=== PATIENT | male | born 1940 | race Caucasian/White ===

== ENCOUNTER 2016-09-09 15:57 | Inpatient (IN) | payer MEDICARE, MEDICAID ==
--- NOTE | 2016-09-09 16:10 | ED Physician Chart ---
Chief Complaint/HPI - Patient Information Date Seen:: 09/09/16 Time Seen:: 15:56 Chief Complaint:: Chest pain History of Present Illness:: Pt was seen immediately upon his arrival. Pt was brought in by ambulance from nursing facility because of chest pain since about 3:10 pm. Chest pain is characterized as substernal, localized and constant, associated with dyspnea. No lightheadedness, ankle edema, PND, AHUJA or orthopnea. No known aggravating or relieving factors for his chest pain. No cough or fever. Pt was given ASA 325 mg prior to arrival. Pt had sublingual NTG prior to arrival that decreased his pain level from 10 to 7 in the pain scale. Pt's baseline functioning is ambulatory with a walker. Allergies:: Allergies Allergy/AdvReac Type Severity Reaction Status Date / Time No Known Allergies Allergy Verified 09/09/16 16:03 Vitals:: see Nurse Note. Historian:: Patient Family MD/PCP:: Dr. Guerra LMP:: N/A Review:: Nurse's Note Reviewed, Transfer documents Reviewed Review of Systems - Review of Systems General/Constitutional: No fever, No weight loss, No weakness, No diaphoresis, No edema, No loss of appetite Skin: No skin lesions, No rash, No bruising Head: No headache, No light-headedness Eyes: No loss of vision, No pain, No diplopia ENT: No earache, No nasal drainage, No sore throat Neck: No neck pain, No swelling, No thyromegaly, No stiffness, No mass noted Cardio Vascular: Chest pain, No palpitations, No PND, No orthopnea, No edema Pulmonary: SOB, No cough, No wheezing GI: No nausea, No vomiting, No diarrhea, No pain, No melena, No hematochezia, No hematemesis G/U: No dysuria, No hematuria Musculoskeletal: Back pain (Chronic low back pain) Psychiatric: Prior psych history, No depression, No anxiety Hematopoietic: No bruising, No lymphadenopathy Allergic/Immuno: No urticaria, No angioedema Neurological: No syncope, No focal symptoms, No weakness, No paresthesia, No headache, No confusion Past Medical History - Past Medical History Past Medical History: HTN, Other (BPH, DDD of lumbar spine. ?chronic anemia) Family History: None Social History: Non Smoker, No Alcohol, No Drug Use, , Care Facility Employment:: Retired. Surgical History: other (Low back surgery about one week ago. Neck surgery about 15 y/a. Bilateral cataract extractions abou 3 y/a.) Psychiatricy History: Other (Anxiety disorder.) Medication: Reviewed Physical Exam - Physical Examination General/Constitutional: Awake, Well-developed, well-nourished, Alert, No distress, GCS 15, Non-toxic appearing Other Gen/Cons comments:: Breathes comfortably, speaks clearly, and interacts normally. Head: Atraumatic Eyes: Lids, conjuctiva normal, PERRL, EOMI Other Eyes comments:: Mildly pale conjunctiva. Skin: Nl inspection, No rash, No skin lesions, No ecchymosis, Well hydrated, No lymphadenopathy ENMT: External ears, nose nl, Nasal exam nl, Oropharynx nl Neck: Nontender, Full ROM w/o pain, No JVD, No nuchal rigidity, No mass, No stridor Respiratory: Nl effort/Exclusion, Clear to Auscultation, No Wheeze/Rhonchi/Rales Cardio Vascular: RRR, No murmur, gallop, rubs GI: No tenderness/rebounding/guarding, No organomegaly, No hernia, Normal BS's, Nondistended, No mass/bruits Other GI comments:: Abdomen is soft. Extremities: No edema Neuro/Psych: Alert/oriented (oriented x 3), Judgement/insight normal, Mood normal, No focal deficits Labs/Radiology/EKG Results - Lab Results Results: Laboratory Tests 09/09/16 09/09/16 09/09/16 16:09 16:09 16:09 WBC 7.4 RBC 2.63 L Hgb 8.6 L Hct 25.6 L MCV 97.2 MCH 32.8 H MCHC Differential 33.8 RDW 12.5 Plt Count 310 MPV 6.6 Neutrophils % 73.0 Lymphocytes % 15.5 L Monocytes % 9.2 Eosinophils % 1.4 Basophils % 0.9 PT 9.8 INR 0.94 Sodium 134 L Potassium 4.1 Chloride 99 Carbon Dioxide 31.9 H Anion Gap 7.2 BUN 10 Creatinine 0.7 Est GFR ( Amer) TNP Est GFR (Non-Af Amer) TNP BUN/Creatinine Ratio 14.3 Glucose 127 H Calcium 8.8 Creatine Kinase 123 Troponin I B-Natriuretic Peptide Triglycerides 124 Cholesterol 124 LDL Cholesterol Direct 78 HDL Cholesterol 37 Blood Type Antibody Screen 09/09/16 09/09/16 16:09 17:00 WBC RBC Hgb Hct MCV MCH MCHC Differential RDW Plt Count MPV Neutrophils % Lymphocytes % Monocytes % Eosinophils % Basophils % PT INR Sodium Potassium Chloride Carbon Dioxide Anion Gap BUN Creatinine Est GFR ( Amer) Est GFR (Non-Af Amer) BUN/Creatinine Ratio Glucose Calcium Creatine Kinase Troponin I 0.32 H* B-Natriuretic Peptide 450.0 H Triglycerides Cholesterol LDL Cholesterol Direct HDL Cholesterol Blood Type O POSITIVE Antibody Screen NEGATIVE - Radiology Results Results: PCXR: Based on my interpretation, mild cardiomegaly. NAD. Official report is pending. - EKG Interpretations EKG Time:: 16:00 Rate & Rhythm: NSR with VR 91 Comments:: LVH. No acute ischemic changes. Cardiac monitoring: NSR with VR 91. No ectopy. Assessment - Assessment Critical Care Time: approx. 45 minutes. ED Septic Shock - . Is Septic Shock (SBP<90, OR Lactate>4 mmol\L) present?: No Reassessment (Disposition) - Reassessment Reassessment:: 1640 Pt has been repeatedly evaluated. His chest pain has decreased to 5/10 after a total of 3 sublingual nitroglycerin. Pt is to be started on nitroglycerin drip, titrated to pain and BP. 1735 Pt continues to improve. Chest pain has resolved. CXR just became available. EKG, CXR, and lab findings have been reviewed with pt. Management plan has been discussed. Dr. Kingsley is to be contacted. 1757 Case was discussed with Dr. Kingsley with pertinent H & P, EKG, CXR, and lab findings reviewed. Pt is to be admitted to ICU under his care. Reassessment Condition:: Improved - Diagnosis Diagnosis:: Chest pain. R/O NE. Stable and currently asymptomatic. Anemia. Stable. - Patient Disposition Admitted to:: ICU Admitting Medical Physician:: Geovanna Kingsley Time:: 18:00 Condition at Disposition:: Stable, Improved
[2016-09-09 16:19] LABS: % BASOPHILS 0.9 % (0.0-2.0); % EOSINOPHILS 1.4 % (0.0-5.0); % LYMPHOCYTES 15.5 % (20.0-50.0); % MONOCYTES 9.2 % (2.0-10.0); HEMATOCRIT 25.6 % (39.0-49.0); HEMOGLOBIN 8.6 gm/dL (12.6-17.4); MEAN CELL VOLUME 97.2 fl (80-99); MEAN CORPUSCULAR HEMOGLOBIN 32.8 pg (27.0-31.0); MEAN CORPUSCULAR HGB CONC 33.8 pg (28.0-36.0); MEAN PLATELET VOLUME 6.6 fl; NEUTROPHILE ABSOLUTE 5.4 Th/cmm (1.8-8.0); PLATELET COUNT 310 Th/cmm (150-400); RED BLOOD COUNT 2.63 Mil/cmm (3.80-5.80); RED CELL DISTRIBUTION WIDTH 12.5 % (11.5-20.0); WHITE BLOOD COUNT 7.4 Th/cmm (4.8-10.8)
[2016-09-09 16:28] LABS: INR 0.94 (0.5-1.4); PROTHROMBIN TIME (TEST) 9.8 SECONDS (9.5-11.5)
[2016-09-09 16:33] LABS: ANION GAP 7.2 (7.0-16.0); BUN - UREA NITROGEN 10 mg/dL (7-25); BUN/CREATININE RATIO 14.3; CALCIUM SERUM 8.8 mg/dL (8.6-10.3); CARBON DIOXIDE 31.9 mEq/L (21.0-31.0); CHLORIDE 99 mEq/L (98-107); CHOLESTEROL 124 mg/dL (<200); CREATININE - SERUM 0.7 mg/dL (0.7-1.3); GLUCOSE 127 mg/dL (70-105); POTASSIUM SERUM 4.1 mEq/L (3.5-5.1); SODIUM SERUM 134 mEq/L (136-145); TRIGLYCERIDES 124 mg/dL (<150)
[2016-09-09 16:38] LABS: TROP I 0.32 ng/mL (0.01-0.05)
[2016-09-09] MEDS ORDERED: Nitroglycerin 50mg/D5W Premix 50 MG/250 ML INFUS..BTL IV PRN (16:45)
[2016-09-09] MEDS ORDERED: Nitroglycerin 50mg/D5W Premix 50 MG/250 ML INFUS..BTL IV ONE (16:54)
[2016-09-09] MEDS ORDERED: OXYCODONE HCL PO PRN (18:08)
[2016-09-09] MEDS ORDERED: ACETAMINOPHEN PO PRN (18:08)
[2016-09-09] MEDS ORDERED: Magnesium Hydroxide (MOM) 30 mL UDC PO PRN (18:08)
[2016-09-09] MEDS ORDERED: Fleet Enema 135 mL RC PRN (18:08)
[2016-09-09] MEDS ORDERED: Hydrocodone/APAP 5mg/325mg Tab PO PRN (18:08)
[2016-09-09] MEDS: Dicyclomine 10 mg Cap PO SCH (21:08)
[2016-09-09] MEDS: APAP/Oxycodone 5/325mg Oral Tab PO PRN (21:09)
[2016-09-09 22:04] LABS: URINE BACTERIA OCCASIONAL /hpf (NONE SEEN); URINE BILIRUBIN NEGATIVE (NEGATIVE); URINE BLOOD NEGATIVE (NEGATIVE); URINE COLOR YELLOW; URINE EPITHELIAL CELLS OCCASIONAL /lpf (FEW); URINE GLUCOSE (UA) NEGATIVE (NEGATIVE); URINE KETONE NEGATIVE (NEGATIVE); URINE PROTEIN NEGATIVE (NEGATIVE); URINE RBC NONE SEEN /hpf (0-5); URINE WBC NONE SEEN /hpf (0-5)
[2016-09-10] MEDS: NITROGLYCERIN OINT 2% 1 INCH PACKET TP SCH ×4 (00:51→17:50)
[2016-09-10] MEDS: APAP/Oxycodone 5/325mg Oral Tab PO PRN ×5 (00:58→21:13)
--- NOTE | 2016-09-10 02:52 | History & Physical ---
ADMIT DATE: 09/09/2016 CHIEF COMPLAINT: Chest pain for a few hours duration. HISTORY OF PRESENT ILLNESS: The patient is a 75-year-old male with long history of hypertension, chronic anxiety disorder, coronary artery disease, hypertension, chronic back pain, degenerative disk disease status post back surgery, presented to the Emergency Room with chest pain at the substernal area for a few hours duration. The patient evaluated by the ER physician. Initial workup significant for elevation of the cardiac enzymes. No EKG changes. The patient admitted to the ICU. Dr. Michael Ty, cardio hr shared services consultant on the case. The patient denies any fever, chills, nausea, or vomiting. PAST MEDICAL HISTORY: Significant for hypertension, coronary artery disease, chronic back pain, and hyperlipidemia. PAST SURGICAL HISTORY: Back surgery. ALLERGIES: None. MEDICATIONS: Follow admission reconciliation. SOCIAL HISTORY: No smoking, alcohol, or drug. FAMILY HISTORY: Noncontributory. REVIEW OF SYSTEMS: RENAL SYSTEM: No history of chronic renal disorder. CARDIOVASCULAR SYSTEM: He has history of coronary artery disease, hypertension. ENDOCRINE SYSTEM: No diabetes or thyroid problem. GASTROINTESTINAL SYSTEM: He has gastroesophageal reflux. NEUROLOGICAL SYSTEM: He has history of depression. MUSCULOSKELETAL SYSTEM: He has a chronic back pain and back surgery. PHYSICAL EXAMINATION: GENERAL: He is awake, alert, oriented. VITAL SIGNS: Temperature is 99.1, heart rate 64, blood pressure 155/68. HEENT: Normocephalic. Pupils are reacting to light and accommodation. Sclerae clear. NECK: Supple. Negative for lymphadenopathy, JVD, or bruit. CHEST: Bilaterally normal. No rales, rhonchi, or wheezing. HEART: S1 and S2 normal. No murmur or gallop. ABDOMEN: Soft. Bowel sounds positive. EXTREMITIES: No edema. BACK: ____. SKIN: Intact. NEUROLOGIC: He is awake, alert, oriented. No focal motor or sensory deficits. Cranial nerves 2-12 intact. LABORATORY DATA: White blood cell 7.4, hemoglobin 8.6, hematocrit 25.6, and platelet 310. Sodium 134, potassium 4.1, BUN is 10, creatinine 0.7, troponin 0.33. BNP 450. Urinalysis normal. ASSESSMENT: 1. Chest pain with elevation of troponin. 2. Hypertension. 3. Anemia. 4. Coronary artery disease. 5. Chronic back pain. 6. Hyperlipidemia. PLAN: The patient admitted to the ICU under Dr. Kingsley's service, start him on cardiac diet. Nitro paste 1 inch to the chest wall q. 6 hours. EKG in a.m. CPK, troponin q. 8 hours x 3. The patient will resume his medication and diet. Cardiac consultation obtained. The patient is a full code. Lovenox 40 mg subcutaneous daily. JOB# [id number]
[2016-09-10] MEDS: Morphine Sulfate 2 mg/mL 1mL Syr IVP PRN ×2 (05:05→20:37)
[2016-09-10 05:17] LABS: BUN - UREA NITROGEN 9 mg/dL (7-25); BUN/CREATININE RATIO 12.9; CALCIUM SERUM 8.9 mg/dL (8.6-10.3); CARBON DIOXIDE 30.9 mEq/L (21.0-31.0); CHLORIDE 101 mEq/L (98-107); CREATININE - SERUM 0.7 mg/dL (0.7-1.3); GLUCOSE 110 mg/dL (70-105); POTASSIUM SERUM 3.9 mEq/L (3.5-5.1); SODIUM SERUM 135 mEq/L (136-145)
--- NOTE | 2016-09-10 06:01 | History & Physical ---
ADMIT DATE: 09/09/2016 The patient is in ICU. The patient of Dr. Kingsley. HISTORY OF PRESENT ILLNESS: This 75-year-old male was seen and examined. The patient was admitted here with history of chest pains, ____ precordial in location, pressure and type, not significant radiation. The patient does have a history of coronary artery disease, gives history of 3 stents being put in. The patient also has history of hypertension, hyperlipidemia, history of recent lower back surgery. In the remote past, the patient has cervical spine surgery. LABORATORY DATA: Troponin was found to be slightly elevated at 0.32 and 0.33. INR was 0.94. WBC count was 7.4, hemoglobin 8.6, hematocrit 25.6, platelet count was 310. BNP was 450. Sodium was 134, potassium 4.1, chloride 99, CO2 is 31.9, BUN 10, creatinine 0.7, glucose 127. LDL cholesterol was 78. CPK 123, total cholesterol was 124. Triglycerides 124, HDL of 37. The patient has sinus rhythm. EKG showed sinus rhythm, possible LVH, no acute changes. SOCIAL HISTORY: The patient is not a smoker and not a drinker. FAMILY HISTORY: Not significant. PAST MEDICAL HISTORY: As mentioned above. PHYSICAL EXAMINATION: VITAL SIGNS: Heart rate was 60, blood pressure was 140/70. SKIN: Normal. HEAD: Head is normocephalic. Eyes: Conjunctivae pink. There is no icterus in the eyes. Pupils reacting to light. NECK: There was no increased jugular venous distention, no thyromegaly, no lymphadenopathy. Carotids equal both sides. CHEST: Bilaterally symmetrical and moved well with respirations. Respiratory movements equal both sides. Trachea is central. There is note to percussion. Breath sounds, few scattered rales. CARDIOVASCULAR SYSTEM: PMI not well localized and no positional thrill. No parasternal heave, S1 normal, S2 physiologic. There was no S3, no rub. ABDOMEN: Soft, no tenderness, no rigidity, no guarding and no organomegaly. Bowel sounds normal. CENTRAL NERVOUS SYSTEM: Higher function in normal limits, grossly nonfocal. EXTREMITIES: No edema, no calf tenderness. Peripheral pulses diminished. IMPRESSION: Chest pains, rule out myocardial infarction, mild elevation of troponin level, possibility of non-Q-wave myocardial infarction, coronary artery disease, status post coronary stents x 3 stents, hypertension, hyperlipidemia, elevated BNP, possible cardiac decompensation, congestive heart failure, anemia, status post recent lower back surgery, status post cervical spine surgery in the past. DISCUSSION SESSION: Continue monitoring in ICU, equipment monitor phototypesetting, serial EKG, serial enzymes, also get echocardiogram in a.m. to evaluate left ventricular function and valvular structure and lipid profile and thyroid profile. Chest x-ray in the meantime to continue beta tarsha, DARIEN inhibitor, statins and diuretics, potassium supplements, nitrates and anticoagulation. Continue aspirin also. Also suggests to keep hematocrit above 30. Discussed with RN. She will notify the PMD of my consult and my suggestions and discussion. Further recommendation will be made depending on the basis of the tests available and the patient will be followed by Dr. Marcela Ty. JOB# [id number]
[2016-09-10] MEDS: Aspirin 81mg Chewable Tab PO SCH (08:33)
[2016-09-10] MEDS: Dicyclomine 10 mg Cap PO SCH ×4 (08:35→21:06)
[2016-09-10] MEDS: Enoxaparin 40 mg/0.4 mL 0.4mL Syr SUBQ SCH (08:36)
[2016-09-10] MEDS ORDERED: Non-Formulary Item 1 EA (Ranolazine [Ranexa] 500 MG) PO SCH (09:00)
--- NOTE | 2016-09-10 09:14 | Diagnostic Imaging Report ---
Portable chest x-ray HISTORY: Pain The heart appears enlarged. No focal pulmonary processes. No hilar or mediastinal abnormalities. Surgical changes seen within the cervical spine. IMPRESSION: 1. No acute abnormalities 2. Cardiomegaly
--- NOTE | 2016-09-10 12:56 | Cardiology ---
09/10/[address] Kingsley. M-MODE ECHOCARDIOGRAM: Mitral valve, anterior leaflet of mitral valve shows normal excursion, EF velocity. Posterior leaflet of the mitral valve shows normal excursion. Left ventricular posterior wall showed normal thickness, excursion. Interventricular septum showed normal thickness, excursion, ejection fraction 72%. Left atrium normal. Aortic root showed normal dimension, slightly decreased aortic leaflets with mild aortic stenosis. CONCLUSION: Hypertrophy of the left ventricle, mild aortic stenosis, ejection fraction 72%. 2D ECHO: Long axis view showed normal sized left ventricle with hypertrophy of the left ventricle. Left atrium normal. Aortic root shows normal dimension, minimal sclerosis of aortic leaflets. Short axis view of mitral valve normal. Short axis view of aortic valve shows minimal sclerosis of aortic leaflets. Apical four chamber view showed normal sized left ventricle with hypertrophy of the left ventricle. Left atrium normal. Right ventricular cavity, right atrium normal. No pericardial effusion. CONCLUSION: Hypertrophy of the left ventricle, ejection fraction 72%, mild aortic stenosis. Doppler study shows prominent A wave consistent with poor compliance of left ventricle. Mild mitral regurgitation, tricuspid regurgitation, pulmonary regurgitation, right ventricular systolic pressure 55 mmHg with moderate pulmonary hypertension. Aortic valve area 1.73 square cm. JOB# [id number]
--- NOTE | 2016-09-10 16:09 | Internal Medicine Prog Note ---
Internal Medicine Subjective - Subjective Service Date: 09/10/16 Patient seen and examined:: with staff Patient is:: awake, in bed Patient Complaints of:: other (back pain) Per staff patient has:: no adverse event, eating well Internal Medicine Objective - Results Result Diagrams: 09/09/16 16:09 09/10/16 03:30 Recent Labs: Laboratory Last Values WBC 7.4 Th/cmm (4.8-10.8) 09/09/16 16:09 RBC 2.63 Mil/cmm (3.80-5.80) L 09/09/16 16:09 Hgb 8.6 gm/dL (12.6-17.4) L 09/09/16 16:09 Hct 25.6 % (39.0-49.0) L 09/09/16 16:09 MCV 97.2 fl (80-99) 09/09/16 16:09 MCH 32.8 pg (27.0-31.0) H 09/09/16 16:09 MCHC Differential 33.8 pg (28.0-36.0) 09/09/16 16:09 RDW 12.5 % (11.5-20.0) 09/09/16 16:09 Plt Count 310 Th/cmm (150-400) 09/09/16 16:09 MPV 6.6 fl 09/09/16 16:09 Neutrophils % 73.0 % (40.0-80.0) 09/09/16 16:09 Lymphocytes % 15.5 % (20.0-50.0) L 09/09/16 16:09 Monocytes % 9.2 % (2.0-10.0) 09/09/16 16:09 Eosinophils % 1.4 % (0.0-5.0) 09/09/16 16:09 Basophils % 0.9 % (0.0-2.0) 09/09/16 16:09 PT 9.8 SECONDS (9.5-11.5) 09/09/16 16:09 INR 0.94 (0.5-1.4) 09/09/16 16:09 Sodium 135 mEq/L (136-145) L 09/10/16 03:30 Potassium 3.9 mEq/L (3.5-5.1) 09/10/16 03:30 Chloride 101 mEq/L (98-107) 09/10/16 03:30 Carbon Dioxide 30.9 mEq/L (21.0-31.0) 09/10/16 03:30 Anion Gap 7.0 (7.0-16.0) 09/10/16 03:30 BUN 9 mg/dL (7-25) 09/10/16 03:30 Creatinine 0.7 mg/dL (0.7-1.3) 09/10/16 03:30 Est GFR ( Amer) TNP 09/10/16 03:30 Est GFR (Non-Af Amer) TNP 09/10/16 03:30 BUN/Creatinine Ratio 12.9 09/10/16 03:30 Glucose 110 mg/dL (70-105) H 09/10/16 03:30 Calcium 8.9 mg/dL (8.6-10.3) 09/10/16 03:30 Creatine Kinase 123 U/L (30-223) 09/09/16 16:09 Troponin I 0.27 ng/mL (0.01-0.05) H* D 09/10/16 03:30 B-Natriuretic Peptide 450.0 pg/mL (5.0-100.0) H 09/09/16 16:09 Triglycerides 124 mg/dL (<150) 09/09/16 16:09 Cholesterol 124 mg/dL (<200) 09/09/16 16:09 LDL Cholesterol Direct 78 mg/dL (75-193) 09/09/16 16:09 HDL Cholesterol 37 mg/dL (23-92) 09/09/16 16:09 Urine Source CLEAN C 09/09/16 18:00 Urine Color YELLOW 09/09/16 18:00 Urine Clarity CLEAR (CLEAR) 09/09/16 18:00 Urine pH 7.0 09/09/16 18:00 Ur Specific [place] 1.010 (1.005-1.030) 09/09/16 18:00 Urine Protein NEGATIVE mg/dL (NEGATIVE) 09/09/16 18:00 Urine Glucose (UA) NEGATIVE mg/dL (NEGATIVE) 09/09/16 18:00 Urine Ketones NEGATIVE mg/dL (NEGATIVE) 09/09/16 18:00 Urine Blood NEGATIVE (NEGATIVE) 09/09/16 18:00 Urine Nitrate NEGATIVE (NEGATIVE) 09/09/16 18:00 Urine Bilirubin NEGATIVE (NEGATIVE) 09/09/16 18:00 Urine Urobilinogen 1.0 E.U./dL (0.2 - 1.0) 09/09/16 18:00 Ur Leukocyte Esterase NEGATIVE (NEGATIVE) 09/09/16 18:00 Urine RBC NONE SEEN /hpf (0-5) 09/09/16 18:00 Urine WBC NONE SEEN /hpf (0-5) 09/09/16 18:00 Ur Epithelial Cells OCCASIONAL /lpf (FEW) 09/09/16 18:00 Urine Bacteria OCCASIONAL /hpf (NONE SEEN) 09/09/16 18:00 Blood Type O POSITIVE 09/09/16 17:00 Antibody Screen NEGATIVE 09/09/16 17:00 - Physical Exam Vitals and I&O: Vital Signs Temp 97.8 F 09/10/16 15:00 Pulse 62 09/10/16 15:00 Resp 17 09/10/16 15:00 BP 113/68 09/10/16 15:00 Pulse Ox 96 09/10/16 15:00 Intake & Output 09/09/16 09/10/16 09/10/16 18:59 06:59 18:59 Intake Total 200 200 Output Total 300 100 Balance -100 100 Weight (lbs) 53.977 kg 53.977 kg Intake: Oral 200 200 Output: Urine 300 100 Other: # Voids 5 # Bowel Movements 0 Stool Characteristics Soft Soft Active Medications: Current Medications Acetaminophen (Tylenol) 650 mg PO Q6H PRN PRN Reason: Pain or Fever >101 Stop: 11/08/16 20:19 Acetaminophen/Hydrocodone Bitart ([place] 5mg/325mg) 1 tab PO Q6H PRN PRN Reason: PAIN Stop: 11/08/16 18:07 Alprazolam (Xanax) 0.5 mg PO Q8H PRN; Protocol PRN Reason: Anxiety Stop: 11/08/16 18:07 Last Admin: 09/10/16 08:30 Dose: 0.5 mg Aspirin (Aspirin Chewable) 81 mg PO DAILY TARUN Stop: 11/09/16 08:59 Last Admin: 09/10/16 08:33 Dose: 81 mg Bisacodyl (Dulcolax 10 Mg Supp) 10 mg RC Q8H PRN PRN Reason: IF NO BM 8 HOURS AFTER MOM Stop: 11/08/16 18:07 Clonazepam (Klonopin) 0.5 mg PO TID TARUN PRN Reason: Protocol Stop: 11/08/16 20:59 Last Admin: 09/10/16 14:19 Dose: 0.5 mg Clopidogrel Bisulfate (Plavix) 75 mg PO DAILY [facility] Stop: 11/09/16 08:59 Last Admin: 09/10/16 08:32 Dose: 75 mg Dicyclomine HCl (Bentyl) 20 mg PO QID [facility] Stop: 11/08/16 20:59 Last Admin: 09/10/16 12:43 Dose: 20 mg Docusate Sodium (Colace) 100 mg PO DAILY [facility] Stop: 11/09/16 08:59 Last Admin: 09/10/16 08:30 Dose: 100 mg Enoxaparin Sodium (Lovenox) 40 mg SUBQ DAILY [facility] Stop: 11/09/16 08:59 Last Admin: 09/10/16 08:36 Dose: 40 mg Famotidine (Pepcid) 20 mg PO BID [facility] Stop: 11/08/16 20:29 Last Admin: 09/10/16 08:30 Dose: 20 mg Gabapentin (Neurontin) 600 mg PO BID [facility] Stop: 11/08/16 20:29 Last Admin: 09/10/16 10:04 Dose: Not Given Nitroglycerin/Dextrose (Nitroglycerin 50mg/Dextrose 5% Premix) 50 mg in 250 mls @ 3 mls/hr IV TITR PRN; Protocol; 10 MCG/MIN PRN Reason: BP MAINTENANCE Stop: 11/08/16 16:44 Last Admin: 09/09/16 17:06 Dose: 10 mcg/min, 3 mls/hr Isosorbide Mononitrate (Imdur) 60 mg PO DAILY [facility] Stop: 11/09/16 08:59 Last Admin: 09/10/16 08:32 Dose: 60 mg Magnesium Hydroxide (Milk Of Magnesia) 30 ml PO Q24H PRN PRN Reason: NO BM IN 24 HOURS Stop: 11/08/16 18:07 Metoprolol Succinate (Toprol Xl) 25 mg PO HS [facility] Stop: 11/08/16 20:59 Last Admin: 09/09/16 21:04 Dose: Not Given Miscellaneous (Ranolazine [Ranexa]) 500 mg PO BID [facility] Stop: 11/09/16 08:59 Morphine Sulfate (Morphine) 2 mg IVP Q6HR PRN PRN Reason: SEVERE PAIN Stop: 11/08/16 22:32 Last Admin: 09/10/16 05:05 Dose: 2 mg Nitroglycerin (Nitrostat) 0.4 mg SL Q5MIN PRN PRN Reason: CHEST PAIN X3 Stop: 11/08/16 18:07 Nitroglycerin (Nitro-Bid) 1 inch TP Q6H TARUN Stop: 11/08/16 18:14 Last Admin: 09/10/16 12:41 Dose: 1 inch Oxycodone/Acetaminophen (Percocet 5/325mg Oral Tab) 1 tab PO Q4H PRN PRN Reason: Pain (Moderate) Oxycodone/Acetaminophen (Percocet 5/325mg Oral Tab) 2 tab PO Q4H PRN PRN Reason: Severe Pain Stop: 11/08/16 20:40 Last Admin: 09/10/16 12:30 Dose: 2 tab Senna (Senna) 17.2 mg PO DAILY TARUN Stop: 11/09/16 08:59 Last Admin: 09/10/16 08:31 Dose: 17.2 mg Simvastatin (Zocor) 40 mg PO HS TARUN Stop: 11/08/16 20:59 Last Admin: 09/09/16 21:09 Dose: 40 mg Sodium Phosphate (Fleet Enema) 133 ml RC Q8H PRN PRN Reason: If No BM 8 Hours After Dulcola Stop: 11/08/16 18:07 Tamsulosin HCl (Flomax) 0.4 mg PO HS TARUN Stop: 11/08/16 20:59 Last Admin: 09/09/16 21:09 Dose: 0.4 mg Zolpidem Tartrate (Ambien) 10 mg PO HS PRN PRN Reason: Insomnia Stop: 11/08/16 20:24 Last Admin: 09/10/16 00:59 Dose: 10 mg General: weak, alert HEENT: NC/AT, PERRLA, EOMI, throat clear Neck: Supple, No JVD, No thyromegaly, +2 carotid pulse wo bruit, No LAD Lungs: CTAB Cardiovascular: RRR, Normal S1, Normal S2 Abdomen: soft, non-tender Extremities: clear, edema, pedal pulses Neurological: no change Internal Medicine Assmt/Plan - Assessment Assessment: 1.CHEST PAIN. 2.CAD. 3.BACK PAIN. 4.SP BACK SURGERY. - Plan Plan: CONTINUE ON CURRENT MEDICATION AND DIET.CONSULT .PT EVALUATION AND TREATMENT.
--- NOTE | 2016-09-10 23:18 | Admit Criteria Form ---
Admit Criteria Forms - Admit Criteria Diagnosis: CHEST PAIN Clinical Indications for Admission to Inpatient Care (Place 'X' for any and all applicable criteria): Admission is indicated for chest pain and ANY ONE of the following(1)(2)(3)(4)(5 ): [ ]I. Angina with acute coronary syndrome (Also use Myocardial Infarction or Angina guideline) [ ]II. Hemodynamic instability [ ]III. Angina needing acute intervention as indicated by ALL of the following( 11)(12): [ ]a) Unstable angina is present as indicated by angina that is ANY ONE of the following: [ ]i) New onset [ ]ii) Nocturnal [ ]iii) Prolonged at rest [ ]iv) Progressive [ ]b) Angina warrants acute intervention as indicated by ANY ONE of the following: [ ]i) Recurrent angina (e.g, not responding as previously to treatment) [ ]ii) Angina at rest or with low-level activities despite initial medical therapy [ ]iii) New or presumably new ST-segment depression on ECG [ ]iv) Signs or symptoms of heart failure (eg, dyspnea, pulmonary edema) [ ]v) New or worsening mitral regurgitation [ ]vi) Hemodynamic instability [ ]vii) Dangerous arrhythmia (eg, sustained ventricular tachycardia) [ ]viii) History of percutaneous coronary intervention within 6 months [ ]ix) History of coronary artery bypass graft surgery [ ]x) MIKAYLA risk score of 2 or greater[A] [ ]xi) History of Diabetes(14) [ ]xii) High-risk cardiac ischemia findings on noninvasive testing (e.g, echocardiogram, treadmill testing, nuclear scan) [ ]xiii) Chronic renal insufficiency (ie, estimated GFR less than 60 mL/min/1.732m) [ ]xiv) Left ventricular ejection fraction less than 40% [ ]IV. Evidence of AL (eg, cardiac biomarkers positive, ST-segment elevation on ECG) also use Myocardial Infarction Criteria Form. [ ]V. Pulmonary edema [ ]. Respiratory distress [ ]VII. Chest pain indicative of serious diagnosis other than coronary artery disease (eg, aortic dissection) [ X]VIII. Contraindications and/or Inappropriate clinical situations for Observational Care in patients with Chest Pain, when ANY ONE of the following is required: [ ]a) Patient with risk factor for pulmonary embolism, acute coronary syndrome and myocardial infarction (18) [ ]b) Patient with Pulmonary embolism require an average LOS of 4.3 days, therefore emergency department observation management is inappropriate 18,23 [ ]c) Painful condition/s in the elderly, have the highest rate of recidivism after emergency department observation management (10.8%) 20,21,22 [X ]d) Elevated cardiac biomarker requires intensive and exhaustive care (19) [X ]IX. General contraindications and/or Inappropriate clinical situations for Observational Care in patients with Chest Pain, when ANY ONE of the following is required: [X ]a) Prediction of prolongation of LOS based on ANY ONE of the following may be considered as a contraindication for observational care 2, 3, 4, 5, 6, 7, 8, 9, 10, 11 [X ]i) Age > 65 yrs. [ ]ii) Patient arriving by ambulance [X ]iii) Patient with high acuity [ ]iv) Patient requiring vital sign monitoring [ ]v) Patient on IV medication [ ]b) Systolic blood pressures 180mmHg 3,12 [ ]c) Patient with altered mental status including delirium and other alteration of consciousness, (3) [ ]d) Patient whose discharge disposition will be to a shelter home or rehabilitation home should not be managed in Emergency Department Observation Unit. CMS rule requires 3 days hospital stay before such placement. 3,13 [ ]e) Patient with failure to thrive due to broad array of etiologies 3,16,17 [ ]f) Inability to ambulate 3,14 Extended stay beyond goal length of stay may be needed for (1)(28): [ ]a) Specific condition diagnosed after evaluation (eg, pulmonary embolism, aortic dissection) [ ]b) Unstable angina [ ]c) Continued suspicion of acute coronary syndrome with inability to complete needed cardiac evaluation (eg, patient clinically unable to undergo stress testing) [ ]d) Myocardial infarction (Contents from ANGINA and CHEST PAIN clinical indications for admission to inpatient care have been integrated in this form) The original [facility] content created by [employer] has been revised. The portions of the content which have been revised are identified through the use of italic text or in bold, and [facility] has neither reviewed nor approved the modified material. All other unmodified content is copyright [facility]. Please see references footnoted in the original [facility] edition 2016 Admit Criteria Met?: Yes
[2016-09-11] MEDS: Morphine Sulfate 2 mg/mL 1mL Syr IVP PRN (02:34)
[2016-09-11] MEDS: NITROGLYCERIN OINT 2% 1 INCH PACKET TP SCH ×4 (05:05→19:05)
[2016-09-11] MEDS: APAP/Oxycodone 5/325mg Oral Tab PO PRN ×3 (05:16→19:05)
[2016-09-11 05:31] LABS: % BASOPHILS 0.1 % (0.0-2.0); % EOSINOPHILS 3.8 % (0.0-5.0); % LYMPHOCYTES 17.4 % (20.0-50.0); % MONOCYTES 9.6 % (2.0-10.0); % NEUTROPHILS 69.1 % (40.0-80.0); HEMATOCRIT 27.3 % (39.0-49.0); HEMOGLOBIN 9.2 gm/dL (12.6-17.4); MEAN CELL VOLUME 96.6 fl (80-99); MEAN CORPUSCULAR HEMOGLOBIN 32.7 pg (27.0-31.0); MEAN CORPUSCULAR HGB CONC 33.8 pg (28.0-36.0); MEAN PLATELET VOLUME 6.7 fl; RED BLOOD COUNT 2.83 Mil/cmm (3.80-5.80); RED CELL DISTRIBUTION WIDTH 12.4 % (11.5-20.0); WHITE BLOOD COUNT 7.3 Th/cmm (4.8-10.8)
[2016-09-11 05:34] LABS: PLATELET COUNT 376 Th/cmm (150-400)
[2016-09-11 05:56] LABS: ALB/GLOB RATIO 1.2 (1.0-1.8); ALKALINE PHOSPHATASE 44 U/L (34-104); ANION GAP 6.8 (7.0-16.0); BILIRUBIN,TOTAL 0.5 mg/dL (0.3-1.0); BUN - UREA NITROGEN 10 mg/dL (7-25); BUN/CREATININE RATIO 12.5; CALCIUM SERUM 9.1 mg/dL (8.6-10.3); CARBON DIOXIDE 32.9 mEq/L (21.0-31.0); CHLORIDE 98 mEq/L (98-107); CREATININE - SERUM 0.8 mg/dL (0.7-1.3); GLUCOSE 105 mg/dL (70-105); POTASSIUM SERUM 3.7 mEq/L (3.5-5.1); SGOT 14 U/L (13-39); SGPT/ALT 9 U/L (7-52); SODIUM SERUM 134 mEq/L (136-145)
--- NOTE | 2016-09-11 08:07 | Consultation ---
DATE OF CONSULTATION: 09/11/2016 PHYSICIAN: Dr. Kingsley. BRACELET FORMER: Dr. Presley. TYPE OF THE REPORT: Psychiatric consult. REASON FOR THE CONSULT: Anxiety. HISTORY OF PRESENT ILLNESS: The patient is a 75-year-old male who was admitted to the hospital because of chest pain. The patient has elevated troponin. The patient has anxiety disorder and the patient is taking currently Klonopin as well as Xanax. The patient currently seems to be calm. He is able to answer my questions, although at times he seems to be slightly sleepy and sedated. He also was able to follow directions. PAST PSYCHIATRIC HISTORY: History of anxiety. PAST MEDICAL HISTORY: The patient was admitted to the hospital with elevated troponin and chest pain. SOCIAL HISTORY: The patient is and he said that he has 3 children. The patient lives with his . He denies any alcohol or street drug use. MENTAL STATUS EXAMINATION: The patient appears slightly older than stated age. Slightly sedated. Cooperative. Poor eye contact. Low tone and rate of speech. The patient denies hallucinations or delusions. Denies any suicidal or homicidal ideations. The patient is alert and oriented to time, place, person and situation. Intact immediate, recent and remote memories. Fair insight and judgment. ASSESSMENT: PRIMARY DIAGNOSIS: Generalized anxiety disorder. TREATMENT PLAN: Continue Klonopin and the Xanax on a p.r.n. basis. Also continue Neurontin. We will reevaluate. Thanks to Dr. Kingsley and we will follow with you. JOB# [id number]
[2016-09-11] MEDS: Aspirin 81mg Chewable Tab PO SCH (10:16)
[2016-09-11] MEDS: Dicyclomine 10 mg Cap PO SCH ×4 (10:16→21:57)
[2016-09-11] MEDS: Enoxaparin 40 mg/0.4 mL 0.4mL Syr SUBQ SCH ×2 (10:20→11:12)
--- NOTE | 2016-09-11 21:22 | Internal Medicine Prog Note ---
Internal Medicine Subjective - Subjective Service Date: 09/11/16 Patient seen and examined:: without staff (He still has back pain,othrwise no chest pain.) Patient is:: awake, in bed Patient Complaints of:: other (back pain) Per staff patient has:: no adverse event, eating well Internal Medicine Objective - Results Result Diagrams: 09/11/16 05:00 09/11/16 05:00 Recent Labs: Laboratory Last Values WBC 7.3 Th/cmm (4.8-10.8) 09/11/16 05:00 RBC 2.83 Mil/cmm (3.80-5.80) L 09/11/16 05:00 Hgb 9.2 gm/dL (12.6-17.4) L 09/11/16 05:00 Hct 27.3 % (39.0-49.0) L 09/11/16 05:00 MCV 96.6 fl (80-99) 09/11/16 05:00 MCH 32.7 pg (27.0-31.0) H 09/11/16 05:00 MCHC Differential 33.8 pg (28.0-36.0) 09/11/16 05:00 RDW 12.4 % (11.5-20.0) 09/11/16 05:00 Plt Count 376 Th/cmm (150-400) D 09/11/16 05:00 MPV 6.7 fl 09/11/16 05:00 Neutrophils % 69.1 % (40.0-80.0) 09/11/16 05:00 Lymphocytes % 17.4 % (20.0-50.0) L 09/11/16 05:00 Monocytes % 9.6 % (2.0-10.0) 09/11/16 05:00 Eosinophils % 3.8 % (0.0-5.0) 09/11/16 05:00 Basophils % 0.1 % (0.0-2.0) 09/11/16 05:00 PT 9.8 SECONDS (9.5-11.5) 09/09/16 16:09 INR 0.94 (0.5-1.4) 09/09/16 16:09 Sodium 134 mEq/L (136-145) L 09/11/16 05:00 Potassium 3.7 mEq/L (3.5-5.1) 09/11/16 05:00 Chloride 98 mEq/L (98-107) 09/11/16 05:00 Carbon Dioxide 32.9 mEq/L (21.0-31.0) H 09/11/16 05:00 Anion Gap 6.8 (7.0-16.0) L 09/11/16 05:00 BUN 10 mg/dL (7-25) 09/11/16 05:00 Creatinine 0.8 mg/dL (0.7-1.3) 09/11/16 05:00 Est GFR ( Amer) TNP 09/11/16 05:00 Est GFR (Non-Af Amer) TNP 09/11/16 05:00 BUN/Creatinine Ratio 12.5 09/11/16 05:00 Glucose 105 mg/dL (70-105) 09/11/16 05:00 Calcium 9.1 mg/dL (8.6-10.3) 09/11/16 05:00 Total Bilirubin 0.5 mg/dL (0.3-1.0) 09/11/16 05:00 AST 14 U/L (13-39) 09/11/16 05:00 ALT 9 U/L (7-52) 09/11/16 05:00 Alkaline Phosphatase 44 U/L (34-104) 09/11/16 05:00 Creatine Kinase 123 U/L (30-223) 09/09/16 16:09 Troponin I 0.27 ng/mL (0.01-0.05) H* D 09/10/16 03:30 B-Natriuretic Peptide 254.0 pg/mL (5.0-100.0) H 09/11/16 05:00 Total Protein 5.9 gm/dL (6.0-8.3) L 09/11/16 05:00 Albumin 3.2 gm/dL (4.2-5.5) L 09/11/16 05:00 Globulin 2.7 gm/dL 09/11/16 05:00 Albumin/Globulin Ratio 1.2 (1.0-1.8) 09/11/16 05:00 Triglycerides 124 mg/dL (<150) 09/09/16 16:09 Cholesterol 124 mg/dL (<200) 09/09/16 16:09 LDL Cholesterol Direct 78 mg/dL (75-193) 09/09/16 16:09 HDL Cholesterol 37 mg/dL (23-92) 09/09/16 16:09 Urine Source CLEAN C 09/09/16 18:00 Urine Color YELLOW 09/09/16 18:00 Urine Clarity CLEAR (CLEAR) 09/09/16 18:00 Urine pH 7.0 09/09/16 18:00 Ur Specific [employer] 1.010 (1.005-1.030) 09/09/16 18:00 Urine Protein NEGATIVE mg/dL (NEGATIVE) 09/09/16 18:00 Urine Glucose (UA) NEGATIVE mg/dL (NEGATIVE) 09/09/16 18:00 Urine Ketones NEGATIVE mg/dL (NEGATIVE) 09/09/16 18:00 Urine Blood NEGATIVE (NEGATIVE) 09/09/16 18:00 Urine Nitrate NEGATIVE (NEGATIVE) 09/09/16 18:00 Urine Bilirubin NEGATIVE (NEGATIVE) 09/09/16 18:00 Urine Urobilinogen 1.0 E.U./dL (0.2 - 1.0) 09/09/16 18:00 Ur Leukocyte Esterase NEGATIVE (NEGATIVE) 09/09/16 18:00 Urine RBC NONE SEEN /hpf (0-5) 09/09/16 18:00 Urine WBC NONE SEEN /hpf (0-5) 09/09/16 18:00 Ur Epithelial Cells OCCASIONAL /lpf (FEW) 09/09/16 18:00 Urine Bacteria OCCASIONAL /hpf (NONE SEEN) 09/09/16 18:00 Blood Type O POSITIVE 09/09/16 17:00 Antibody Screen NEGATIVE 09/09/16 17:00 - Physical Exam Vitals and I&O: Vital Signs Temp 97.4 F 09/11/16 16:00 Pulse 91 09/11/16 18:00 Resp 15 09/11/16 18:00 BP 119/72 09/11/16 18:00 Pulse Ox 97 09/11/16 18:00 Intake & Output 09/11/16 09/11/16 09/12/16 06:59 18:59 06:59 Intake Total 300 600 Output Total 850 900 Balance -550 -300 Weight (lbs) 53.977 kg 53.977 kg Intake: Oral 300 600 Output: Urine 850 900 Other: # Bowel Movements 1 0 Stool Characteristics [place] Active Medications: Current Medications Acetaminophen (Tylenol) 650 mg PO Q6H PRN PRN Reason: Pain or Fever >101 Stop: 11/08/16 20:19 Acetaminophen/Hydrocodone Bitart ([place] 5mg/325mg) 1 tab PO Q6H PRN PRN Reason: PAIN Stop: 11/08/16 18:07 Last Admin: 09/11/16 05:06 Dose: 1 tab Alprazolam (Xanax) 0.5 mg PO Q8H PRN; Protocol PRN Reason: Anxiety Stop: 11/08/16 18:07 Last Admin: 09/11/16 01:34 Dose: 0.5 mg Aspirin (Aspirin Chewable) 81 mg PO DAILY [facility] Stop: 11/09/16 08:59 Last Admin: 09/11/16 10:16 Dose: 81 mg Bisacodyl (Dulcolax 10 Mg Supp) 10 mg RC Q8H PRN PRN Reason: IF NO BM 8 HOURS AFTER MOM Stop: 11/08/16 18:07 Clonazepam (Klonopin) 0.5 mg PO TID TARUN PRN Reason: Protocol Stop: 11/08/16 20:59 Last Admin: 09/11/16 15:02 Dose: 0.5 mg Clopidogrel Bisulfate (Plavix) 75 mg PO DAILY [facility] Stop: 11/09/16 08:59 Last Admin: 09/11/16 10:16 Dose: 75 mg Dicyclomine HCl (Bentyl) 20 mg PO QID [facility] Stop: 11/08/16 20:59 Last Admin: 09/11/16 19:05 Dose: 20 mg Docusate Sodium (Colace) 100 mg PO DAILY [facility] Stop: 11/09/16 08:59 Last Admin: 09/11/16 10:17 Dose: 100 mg Enoxaparin Sodium (Lovenox) 40 mg SUBQ DAILY [facility] Stop: 11/09/16 08:59 Last Admin: 09/11/16 11:12 Dose: Not Given Famotidine (Pepcid) 20 mg PO BID [facility] Stop: 11/08/16 20:29 Last Admin: 09/11/16 19:05 Dose: 20 mg Gabapentin (Neurontin) 600 mg PO BID [facility] Stop: 11/08/16 20:29 Last Admin: 09/11/16 19:05 Dose: 600 mg Nitroglycerin/Dextrose (Nitroglycerin 50mg/Dextrose 5% Premix) 50 mg in 250 mls @ 3 mls/hr IV TITR PRN; Protocol; 10 MCG/MIN PRN Reason: BP MAINTENANCE Stop: 11/08/16 16:44 Last Admin: 09/09/16 17:06 Dose: 10 mcg/min, 3 mls/hr Isosorbide Mononitrate (Imdur) 60 mg PO DAILY [facility] Stop: 11/09/16 08:59 Last Admin: 09/11/16 10:17 Dose: 60 mg Magnesium Hydroxide (Milk Of Magnesia) 30 ml PO Q24H PRN PRN Reason: NO BM IN 24 HOURS Stop: 11/08/16 18:07 Last Admin: 09/11/16 05:07 Dose: 30 ml Metoprolol Succinate (Toprol Xl) 25 mg PO HS [facility] Stop: 11/08/16 20:59 Last Admin: 09/10/16 21:20 Dose: 25 mg Miscellaneous (Ranolazine [Ranexa]) 500 mg PO BID [facility] Stop: 11/09/16 08:59 Morphine Sulfate (Morphine) 2 mg IVP Q6HR PRN PRN Reason: SEVERE PAIN Stop: 11/08/16 22:32 Last Admin: 09/11/16 02:34 Dose: 2 mg Nitroglycerin (Nitrostat) 0.4 mg SL Q5MIN PRN PRN Reason: CHEST PAIN X3 Stop: 11/08/16 18:07 Nitroglycerin (Nitro-Bid) 1 inch TP Q6H [facility] Stop: 11/08/16 18:14 Last Admin: 09/11/16 19:05 Dose: Not Given Oxycodone/Acetaminophen (Percocet 5/325mg Oral Tab) 1 tab PO Q4H PRN PRN Reason: Pain (Moderate) Last Admin: 09/11/16 05:16 Dose: 1 tab Oxycodone/Acetaminophen (Percocet 5/325mg Oral Tab) 2 tab PO Q4H PRN PRN Reason: Severe Pain Stop: 11/08/16 20:40 Last Admin: 09/11/16 19:05 Dose: 2 tab Senna (Senna) 17.2 mg PO DAILY [facility] Stop: 11/09/16 08:59 Last Admin: 09/11/16 10:18 Dose: 17.2 mg Simvastatin (Zocor) 40 mg PO HS [facility] Stop: 11/08/16 20:59 Last Admin: 09/10/16 20:37 Dose: 40 mg Sodium Phosphate (Fleet Enema) 133 ml RC Q8H PRN PRN Reason: If No BM 8 Hours After Dulcola Stop: 11/08/16 18:07 Tamsulosin HCl (Flomax) 0.4 mg PO HS TARUN Stop: 11/08/16 20:59 Last Admin: 09/10/16 21:07 Dose: 0.4 mg Zolpidem Tartrate (Ambien) 10 mg PO HS PRN PRN Reason: Insomnia Stop: 11/08/16 20:24 Last Admin: 09/10/16 22:25 Dose: 10 mg General: weak, alert HEENT: NC/AT, PERRLA, EOMI, throat clear Neck: Supple, No JVD, No thyromegaly, +2 carotid pulse wo bruit, No LAD Lungs: CTAB Cardiovascular: RRR, Normal S1, Normal S2 Abdomen: soft, non-tender Extremities: clear, edema, pedal pulses Neurological: no change Internal Medicine Assmt/Plan - Assessment Assessment: 1.CHEST PAIN. 2.CAD. 3.BACK PAIN. 4.SP BACK SURGERY. - Plan Plan: CONTINUE ON CURRENT MEDICATION AND DIET.TRANSFER TO [facility] AND HE IS CLEARE TO GO BACK TO [facility] IN AM.
[2016-09-12] MEDS: NITROGLYCERIN OINT 2% 1 INCH PACKET TP SCH ×3 (00:40→12:38)
[2016-09-12] MEDS: APAP/Oxycodone 5/325mg Oral Tab PO PRN ×3 (01:45→12:39)
[2016-09-12] MEDS: Aspirin 81mg Chewable Tab PO SCH (09:34)
[2016-09-12] MEDS: Dicyclomine 10 mg Cap PO SCH ×2 (09:35→12:40)
[2016-09-12] MEDS: Enoxaparin 40 mg/0.4 mL 0.4mL Syr SUBQ SCH (09:35)
[2016-09-12] MEDS: Morphine Sulfate 2 mg/mL 1mL Syr IVP PRN (15:13)
--- NOTE | 2016-09-21 19:41 | Discharge Summary ---
DATE OF DISCHARGE: 09/12/2016 FINAL DIAGNOSES: 1. Chest pain. 2. Hypertension. 3. Anemia. 4. Coronary artery disease. 5. Hypothyroidism. REVIEW OF HISTORY: The patient is a 75-year-old male with long history of hypertension, coronary artery disease, chronic back pain, hyperlipidemia, admitted to [facility] with chest pain for a few hours duration. Initial workup was significant for atypical chest pain. The patient admitted to telemetry, started on cardiac diet, resumed his medication. CPK, troponin ordered. COURSE OF HOSPITALIZATION: During this hospitalization, the patient was seen by oncology consultant. Initial workup was negative for ischemic cardiac disease. On 09/11/2016, the patient was feeling better. No chest pain, no shortness of breath, no nausea, no vomiting. PHYSICAL EXAMINATION: CHEST: Clear to auscultation. ABDOMEN: Soft, bowel sounds positive. DISPOSITION: The patient was discharged home on 09/12/2016, to be followed up with primary physician as an outpatient. CONDITION ON DISCHARGE: Stable. MEDICATIONS: Follow discharge reconciliation. [facility]# [id number]
== END 2016-09-12 16:18 | disposition home or self-care (01) | DRG 206 ==
LOC: ER 15:57 → ICU 17:55 → TELE 09-12
PROVIDERS: ADMIT Family Medicine; ATTEND Family Medicine
DX: M94.0 Chondrocostal junction syndrome [Tietze] (principal); I11.0 Hypertensive heart disease with heart failure; I50.9 Heart failure, unspecified; I25.2 Old myocardial infarction; I25.10 Atherosclerotic heart disease of native coronary artery without angina pectoris; D50.9 Iron deficiency anemia, unspecified; E78.5 Hyperlipidemia, unspecified; G89.29 Other chronic pain; F41.1 Generalized anxiety disorder; N40.0 Benign prostatic hyperplasia without lower urinary tract symptoms; M51.36 Other intervertebral disc degeneration, lumbar region; M54.9 Dorsalgia, unspecified; Z98.42 Cataract extraction status, left eye; Z98.41 Cataract extraction status, right eye; Z95.5 Presence of coronary angioplasty implant and graft; E03.9 Hypothyroidism, unspecified
CPT/HCPCS: 36415-UA; 71010-TC; 80048-TC; 80053-TC; 80061-TC; 81001-TC; 82550-TC; 83880-TC; 84484-TC; 85025-TC; 85610-TC; 86850-TC; 86900-TC; 86901-TC; 93005; 93307-TC; 94760; 96374; 97530; J1650; J1940; J2270; X3904; Z7610